=== PATIENT | male | born 2000 ===

== ENCOUNTER 2023-01-16 20:37 | Emergency (ER) | payer OTHER ==
[~2023-01-16] VITALS: Ht 177.8 cm; Wt 70.0 kg
--- NOTE | 2023-01-16 21:06 | ED Abdominal Pain ---
General Chief Complaint: Abdominal/GI Problems Stated Complaint: AB PAIN Source of Information: Patient Exam Limitations: No Limitations (BIJAN GARZA) History of Present Illness Date Seen by Provider: Jan 16, 2023 Time Seen by Provider: 21:04 Initial Comments Patient is a 22-year-old male who presents ED with upper abdominal pain. This pain started this evening about 3 to 4 hours ago after he ate. [place] some upper abdominal cramping. [place] nauseous and did vomit. Had associated diarrhea. This pain does come and go and intensifies with the pain. Feels distended and gassy. Did take some gas medication without much improvement. Similar symptoms in the past and was treated [place] his [place] country. Denies history of previous abdominal surgery. Denies chest pain, cough, shortness of breath, headache dizziness, visual changes, pain with urination frequent urination. (BIJAN GARZA) Allergies and Home Medications Allergies Coded Allergies: No Known Drug Allergies (Unverified , 01/16/23) Patient Home Medication List Home Medication List Reviewed: Yes (BIJAN GARZA) Amoxicillin/Potassium Clav (Amox Tr-K Clv 875-125 mg Tab) 875 Mg-125 Mg Tablet, 1 EACH PO BID Prescribed by: BERT BADILLO on 01/16/232225 Ondansetron (Ondansetron Odt) 4 Mg Tab.rapdis, 4 MG SL Q4H PRN for NAUSEA/VOMITING Prescribed by: BERT BADILLO on 01/16/232225 Review of Systems Review of Systems Constitutional: No chills, No diaphoresis, No malaise, No weakness EENTM: No Double Vision, No Eye Pain Respiratory: Denies Cough, Denies Orthopnea Cardiovascular: Denies Chest Pain Gastrointestinal: Abdominal Pain; Denies Diarrhea; Nausea, Vomiting Genitourinary: Denies Burning, Denies Discharge Musculoskeletal: No back pain, No joint pain Skin: No change in color, No change in hair/nails (BIJAN GARZA) All Other Systems Reviewed Negative Unless Noted: Yes (BIJAN GARZA) Physical Exam Vital Signs Vital Signs - First Documented 01/16/23 21:05 Temp 36.7 Pulse 88 Resp 16 B/P (MAP) 144/99 (114) Pulse Ox 99 O2 Delivery Room Air (ERMELINDA,ALISON K DO) Vital Signs Capillary Refill : (BIJAN GARZA) Height/Weight/BMI Height: '" Weight: lbs. oz. kg; BMI Method: General Appearance: WD/WN, no apparent distress HEENT: PERRL/EOMI, normal ENT inspection, TMs normal, pharynx normal Neck: non-tender, full range of motion, supple Respiratory: chest non-tender, lungs clear, normal breath sounds, no respiratory distress, no accessory muscle use Cardiovascular: regular rate, rhythm, no edema, no gallop, no JVD Gastrointestinal: normal bowel sounds, non tender, soft, no organomegaly Extremities: normal range of motion, non-tender, normal inspection, no pedal edema Back: normal inspection, no CVA tenderness, no vertebral tenderness Neurologic/Psychiatric: radiology manager II-XII nml as tested, no motor/sensory deficits, a lert, normal mood/affect, oriented x 3 Skin: normal color, warm/dry (BIJAN GARZA) Progress/Results/Core Measures Results/Orders Lab Results Laboratory Tests Test 01/16/23 20:55 01/16/23 21:05 Range/Units Urine Color YELLOW Urine Clarity CLEAR Urine pH 5.0 5-9 Urine Specific [place] >1.030 1.016-1.022 Urine Protein NEGATIVE NEGATIVE Urine Glucose (UA) NEGATIVE NEGATIVE Urine Ketones TRACE H NEGATIVE Urine Nitrite NEGATIVE NEGATIVE Urine Bilirubin 1+ H NEGATIVE Urine Urobilinogen 0.2 < = 1.0 MG/DL Urine Leukocyte Esterase NEGATIVE NEGATIVE Urine RBC (Auto) NEGATIVE NEGATIVE Urine RBC NONE /HPF Urine WBC NONE /HPF Urine Crystals NONE /LPF Urine Bacteria NEGATIVE /HPF Urine Casts NONE /LPF Urine Mucus MODERATE H /LPF Urine Culture Indicated NO Urine Test NEGATIVE White Blood Count 16.1 H 4.3-11.0 10^3/uL Red Blood Count 5.91 H 4.30-5.52 10^6/uL Hemoglobin 16.0 13.3-17.7 g/dL Hematocrit 48 40-54 % Mean Corpuscular Volume 81 80-99 fL Mean Corpuscular Hemoglobin 27 25-34 pg Mean Corpuscular Hemoglobin Concent 34 32-36 g/dL Red Cell Distribution Width 12.8 10.0-14.5 % Platelet Count 271 130-400 10^3/uL Mean Platelet Volume 10.0 9.0-12.2 fL Immature Granulocyte % (Auto) 1 % Neutrophils (%) (Auto) 87 H 42-75 % Lymphocytes (%) (Auto) 9 L 12-44 % Monocytes (%) (Auto) 4 0-12 % Eosinophils (%) (Auto) 0 0-10 % Basophils (%) (Auto) 0 0-10 % Neutrophils # (Auto) 13.9 H 1.8-7.8 10^3/uL Lymphocytes # (Auto) 1.4 1.0-4.0 10^3/uL Monocytes # (Auto) 0.6 0.0-1.0 10^3/uL Eosinophils # (Auto) 0.1 0.0-0.3 10^3/uL Basophils # (Auto) 0.0 0.0-0.1 10^3/uL Immature Granulocyte # (Auto) 0.1 0.0-0.1 10^3/uL Neutrophils % (Manual) 80 % Lymphocytes % (Manual) 16 % Monocytes % (Manual) 4 % Platelet Estimate ADEQUATE Blood Morphology Comment OK Sodium Level 139 135-145 MMOL/L Potassium Level 3.5 L 3.6-5.0 MMOL/L Chloride Level 107 98-107 MMOL/L Carbon Dioxide Level 21 21-32 MMOL/L Anion Gap 11 5-14 MMOL/L Blood Urea Nitrogen 15 7-18 MG/DL Creatinine 0.87 0.60-1.30 MG/DL Estimat Glomerular Filtration Rate 125 BUN/Creatinine Ratio 17 Glucose Level 109 H 70-105 MG/DL Calcium Level 9.2 8.5-10.1 MG/DL Corrected Calcium 8.5-10.1 MG/DL Total Bilirubin 0.8 0.1-1.0 MG/DL Aspartate Amino Transf (AST/SGOT) 26 5-34 U/L Alanine Aminotransferase (ALT/SGPT) 35 0-55 U/L Alkaline Phosphatase 98 40-136 U/L Total Protein 7.4 6.4-8.2 GM/DL Albumin 4.7 H 3.2-4.5 GM/DL Lipase 28 8-78 U/L (ALISON WADSWORTH DO) Vital Signs/I&O 01/16/23 01/16/23 21:05 22:44 Temp 36.7 36.7 Pulse 88 83 Resp 16 16 B/P (MAP) 144/99 (114) 123/84 Pulse Ox 99 99 O2 Delivery Room Air Room Air 01/17/23 00:00 Intake Total 1000 ml Balance 1000 ml (LAISON WADSWORTH DO) Departure Communication (PCP) Patient is a poor historian. Patient is from [place]. Language barrier. Patient does understand [place] .started having mid upper abdominal pain this evening after eating chili powder. Patient has been vomiting with some diarrhea. Similar type pain in the past. CBC, CMP, lipase, urinalysis was ordered. CBC showed elevated white blood count of 16. Chemistry was grossly unremarkable. Patient Was given a liter of fluid. Attempted a GI cocktail concern for gastritis but patient immediately vomited. He did receive Zofran. Patient did not have any specific right lower quadrant tenderness. Did obtain a CT scan secondary to the continuous vomiting and elevated white blood count. CT abdomen pelvis concern for acute appendicitis as the appendix is dilated and distended. This was discussed with patient. He states he was diagnosed with appendicitis 3 months ago in [place]. Started taking antibiotics a few weeks ago for 1 week. He states they shipped the antibiotics. This story does not make sense. patient cannot recall the name. This [place] Physician was concerned that he had enlarged appendix and was going to a treat with antibiotics. Patient does not believe he has appendicitis but gastritis. Patient denies of any alcohol use or NSAID use. No history of previous abdominal surgery. My concern at this time that he has acute appendicitis. Discussed patient with Dr. Hong who suggest admitting started on IV antibiotics IV fluids and potential surgery. Patient does not want to at this time and wants to go home. He end up vomiting again and still refused admission. Patient states he will return if symptoms worsen. Patient was discharged with Zofran and Augmentin. I am concerned that patient will return. provided follow up with DR. Hong. Suggest a PPI for potential GERD. (BIJAN GARZA) Impression Primary Impression: Appendicitis Disposition: 07 AGAINST MEDICAL ADVICE Condition: Unchanged Departure-Patient Inst. Decision time for Depature: 22:24 (BIJAN GARZA) Referrals: NO,LOCAL PHYSICIAN (PCP) Primary Care Physician JOSEP HONG DO Patient Instructions: Appendicitis, Adult (DC) Add. Discharge Instructions: Recommend if worsening pain fever vomiting to return back to ED. All discharge instructions reviewed with patient and/or family. Voiced understanding. Scripts Ondansetron (Ondansetron Odt) 4 Mg Tab.rapdis 4 MG SL Q4H PRN for NAUSEA/VOMITING, #8 TAB Prov: BIJAN GARZA 01/16/23 Amoxicillin/Potassium Clav (Amox Tr-K Clv 875-125 mg Tab) 875 Mg-125 Mg Tablet 1 EACH PO BID for 7 Days, #14 TAB Prov: BIJAN GARZA 01/16/23 ATTENDING PHYSICIAN NOTE: I WAS PHYSICALLY PRESENT ER PHYSICIAN, BUT I WAS NOT INVOLVED IN ANY DECISION MAKING OR ANY CARE OF THIS PATIENT, AND I AM NOT COLLABORATING PHYSICIAN. (ALISON WADSWORTH DO) BIJAN GARZA Jan 16, 2023 21:06 ALISON WADSWORTH DO Jan 17, 2023 19:17
[2023-01-16 21:13] LABS: BASOPHILS % (AUTO) 0 % (0-10); EOSINOPHILS # (AUTO) 0.1 10^3/uL (0.0-0.3); EOSINOPHILS % (AUTO) 0 % (0-10); HEMATOCRIT 48 % (40-54); LYMPHOCYTES # (AUTO) 1.4 10^3/uL (1.0-4.0); LYMPHOCYTES % (AUTO) 9 % (12-44); MEAN CORPUSCULAR HEMOGLOBIN 27 pg (25-34); MEAN CORPUSCULAR HGB CONC 34 g/dL (32-36); MEAN CORPUSCULAR VOLUME 81 fL (80-99); MONOCYTES # (AUTO) 0.6 10^3/uL (0.0-1.0); MONOCYTES % (AUTO) 4 % (0-12); NEUTROPHILS # (AUTO) 13.9 10^3/uL (1.8-7.8); NEUTROPHILS % (AUTO) 87 % (42-75); PLATELET COUNT 271 10^3/uL (130-400); WHITE BLOOD COUNT 16.1 10^3/uL (4.3-11.0)
[2023-01-16] MEDS ORDERED: ANTACID SUSPENSION 30 ML UDC PO ONE (21:15)
[2023-01-16] MEDS ORDERED: LIDOCAINE 2% VISCOUS 15 ML UDC PO ONE (21:15)
[2023-01-16 21:16] LABS: CLARITY,URINE CLEAR; COLOR,URINE YELLOW; GLUCOSE, URINE (UA) NEGATIVE (NEGATIVE); PROTEIN,URINE NEGATIVE (NEGATIVE)
[2023-01-16 21:17] LABS: BACTERIA,URINE NEGATIVE /HPF; BILIRUBIN,URINE 1+ (NEGATIVE); KETONES,URINE TRACE (NEGATIVE); LEUKOCYTE ESTERASE ,URINE NEGATIVE (NEGATIVE); NITRITE,URINE NEGATIVE (NEGATIVE)
[2023-01-16 21:24] LABS: LYMPHOCYTES % (MANUAL) 16 %; MONOCYTES % (MANUAL) 4 %; NEUTROPHILS % (MANUAL) 80 %
[2023-01-16 21:25] LABS: PLATELET ESTIMATE ADEQUATE; RBC MORPH OK
[2023-01-16] MEDS ORDERED: NS IV 1000 ML 1,000 ML IV STA (21:27)
[2023-01-16] MEDS ORDERED: ONDANSETRON INJECTION 4 MG/2 ML (SDV) IVP ONE (21:30)
[2023-01-16 21:37] LABS: ALANINE AMINOTRANSFERASE 35 U/L (0-55); ALBUMIN 4.7 GM/DL (3.2-4.5); ALKALINE PHOSPHATASE 98 U/L (40-136); BILIRUBIN,TOTAL 0.8 MG/DL (0.1-1.0); BUN/CREATININE RATIO 17; CALCIUM 9.2 MG/DL (8.5-10.1); CARBON DIOXIDE 21 MMOL/L (21-32); CHLORIDE 107 MMOL/L (98-107); CREATININE SERUM 0.87 MG/DL (0.60-1.30); GFR ESTIMATED 125; GLUCOSE 109 MG/DL (70-105); LIPASE 28 U/L (8-78); POTASSIUM 3.5 MMOL/L (3.6-5.0); SODIUM 139 MMOL/L (135-145); TOTAL PROTEIN 7.4 GM/DL (6.4-8.2)
--- NOTE | 2023-01-16 21:43 | Diagnostic Imaging Report ---
INDICATION: Upper abdominal pain x3 hours KUB 9:21 PM Lung bases are clear. Bowel gas pattern is normal. There are no pathologic masses or calcifications. IMPRESSION: No acute abnormalities in the abdomen. Dictated by: Dictated on workstation # [id number]
[2023-01-16] MEDS ORDERED: HOLD METFORMIN - RECEIVED CONTRAST 20 ML VIAL IV SCH (21:45)
[2023-01-16] MEDS ORDERED: IOHEXOL 350 MG/ML 100 ML (OMNIPAQUE 350) VIAL IV ONE (21:45)
[2023-01-16] MEDS ORDERED: NS 100 ML (IVPB) BAG IV ONE (21:45)
[2023-01-16] MEDS ORDERED: CATHETER FLUSH 10 ML SYR IV PRN (21:45)
--- NOTE | 2023-01-16 22:01 | Diagnostic Imaging Report ---
PROCEDURE: CT abdomen and pelvis with contrast, rule out appendicitis. TECHNIQUE: Multiple contiguous axial images were obtained through the abdomen and pelvis after the administration of intravenous contrast. All CT scans use one or more of the following dose optimizing techniques: automated exposure control, MA and/or KvP adjustment based on patient size and exam type or iterative reconstruction. INDICATION: Upper abdominal pain Lung bases are clear. Liver appears normal. Gallbladder appears normal. Spleen is upper limits of normal. Pancreas is normal. Adrenals are normal. Kidneys are normal. The appendix is distended and dilated. This is best seen on coronal image 27. Colon is unremarkable. The urinary bladder is decompressed. There is no intraperitoneal free air or free fluid. IMPRESSION: Acute appendicitis. Dictated by: Dictated on workstation # [id number]
[2023-01-16] MEDS ORDERED: AMOXICILLIN/Clavulanate 875 MG TABLET PO STA (22:22)
[2023-01-16] MEDS ORDERED: AMOX1TAB12 PO (22:26)
[2023-01-16] MEDS ORDERED: ONDA4TAB11 SL (22:26)
[2023-01-16 22:44] VITALS: BP 123/84
[2023-01-16] MEDS ORDERED: PROMETHAZINE INJ 25 MG/ML VIAL IVP ONE ×2 (22:45)
== END 2023-01-16 22:44 | disposition left against medical advice (07) ==
LOC: ER 20:41
DX: K37 Unspecified appendicitis (principal)
CPT/HCPCS: 36415; 74018; 74177; 80053; 81000; 83690; 84703; 85007; 85025; 85027; 96374